=== PATIENT | male | born 1965 | race African-American/Black ===

== ENCOUNTER 2019-08-12 16:03 | Inpatient (IN) | payer MEDICAID ==
[~2019-08-12] VITALS: Ht 182.9 cm; Wt 138.8 kg
[2019-08-12] MEDS ORDERED: ONDANSETRON 4MG ODT PO STA (18:13)
[2019-08-12 18:14] LABS: BASOPHILS % 0.3 % (0.0-2.0); EOSINOPHILS % 0.4 % (0.0-5.0); HEMATOCRIT. 43.3 % (42.0-52.0); HEMOGLOBIN. 13.8 g/dL (14.0-18.0); LYMPHOCYTES % 23.6 % (20.0-50.0); MEAN CORPUSCULAR VOLUME 75.2 fL (80.0-94.0); MEAN PLATELET VOLUME 8.6 fl (7.4-10.4); MONOCYTES % 10.7 % (2.0-8.0); PLATELET 161 x1000/uL (130-400); RED BLOOD CELL COUNT 5.76 mill/uL (4.7-6.1)
[2019-08-12 18:15] LABS: CHLORIDE 106 mEq/L (98-107)
[2019-08-12] MEDS ORDERED: NITROGLYCERIN 0.4MG TABLET SL SL PRN (18:15)
[2019-08-12] MEDS ORDERED: CLONIDINE 0.2MG TABLET PO ONE (18:15)
[2019-08-12] MEDS ORDERED: HYDRALAZINE 20MG/ML VIAL IV ONE (18:15)
[2019-08-12] MEDS ORDERED: ASPIRIN 81MG TABLET PO ONE (18:15)
[2019-08-12 20:51] LABS: CLARITY URINE CLEAR (CLEAR); COLOR URINE YELLOW (YELLOW); KETONES URINE NEGATIVE (NEGATIVE); LEUKOCYTE ESTERASE URINE NEGATIVE (NEGATIVE); NITRITE URINE NEGATIVE (NEGATIVE); OCCULT BLOOD URINE TRACE (NEGATIVE); PH URINE 5.5 (4.5-8.0); PROTEIN URINE 1+ (NEGATIVE); SPECIFIC GRAVITY URINE 1.021 (1.005-1.030)
[2019-08-13] MEDS ORDERED: KETOROLAC 30MG/ML VIAL IV PRN (08:30)
[2019-08-13] MEDS ORDERED: ONDANSETRON HCL 4MG/2ML INJ IV PRN (08:30)
[2019-08-13 10:29] LABS: LDL CHOLESTEROL 91 mg/dL (5-100)
[2019-08-13 10:30] LABS: HDL CHOLESTEROL 52 mg/dL (40-59)
[2019-08-13] MEDS: AMLODIPINE 5MG TABLET PO SCH ×2 (11:16→22:01)
[2019-08-13] MEDS: ASPIRIN 81MG TABLET PO SCH (11:17)
[2019-08-13] MEDS ORDERED: LIDOCAINE HCL 1% 20ML VIAL (Pyxis) INJ ONE (14:05)
[2019-08-13 16:19] LABS: HEPATITIS B SURFACE ANTIGEN NEGATIVE
[2019-08-13] MEDS: LOSARTAN POTASSIUM 100 MG TABLET PO SCH (16:27)
[2019-08-13 16:49] LABS: HEPATITIS A AB IGM NEGATIVE (NEGATIVE)
[2019-08-13] MEDS ORDERED: CLONIDINE 0.1MG TABLET PO PRN (17:30)
[2019-08-13 17:39] LABS: *AMPHETAMINES SCREEN URINE PRESUMTIVE POSITIVE (NEGATIVE); *BARBITURATES SCREEN URINE NEGATIVE (NEGATIVE); *BENZODIAZEPINES SCREEN URINE NEGATIVE (NEGATIVE); *COCAINE SCREEN URINE NEGATIVE (NEGATIVE); OPIATES URINE SCREEN NEGATIVE (NEGATIVE)
[2019-08-13 17:40] LABS: CANNABINOID URINE SCREEN NEGATIVE (NEGATIVE); PHENCYCLIDINE URINE SCREEN NEGATIVE (NEGATIVE)
[2019-08-13 18:30] VITALS: BP 146/69
[2019-08-13 20:00] VITALS: BP 129/85
[2019-08-13] MEDS: ACETAMINOPHEN 325MG TABLET PO PRN (22:12)
[2019-08-14] VITALS: BP 102/61
[2019-08-14] MEDS ORDERED: B50 GT (00:13)
[2019-08-14] MEDS ORDERED: ABILIFY PO (00:13)
[2019-08-14 04:00] VITALS: BP 140/89
[2019-08-14 08:00] VITALS: BP 138/84
[2019-08-14 08:00] LABS: BASOPHILS % 0.3 % (0.0-2.0); EOSINOPHILS % 2.3 % (0.0-5.0); HEMATOCRIT. 46.4 % (42.0-52.0); MEAN CORPUSCULAR HEMOGLOBIN 24.2 pg (28.0-32.0); MEAN PLATELET VOLUME 8.5 fl (7.4-10.4); MONOCYTES % 10.6 % (2.0-8.0); NEUTROPHILS % 49.8 % (40.0-76.0); PLATELET 165 x1000/uL (130-400); RED BLOOD CELL COUNT 6.18 mill/uL (4.7-6.1); RED CELL DISTRIBUTION WIDTH 15.4 % (11.6-14.6)
[2019-08-14 08:04] LABS: CHLORIDE 109 mEq/L (98-107)
[2019-08-14] MEDS: ASPIRIN 81MG TABLET PO SCH (09:08)
[2019-08-14] MEDS: LOSARTAN POTASSIUM 100 MG TABLET PO SCH (09:08)
[2019-08-14] MEDS: AMLODIPINE 5MG TABLET PO SCH (09:09)
[2019-08-14] MEDS: ACETAMINOPHEN 325MG TABLET PO PRN (10:00)
[2019-08-14 12:00] VITALS: BP 135/86
[2019-08-14] MEDS ORDERED: LOSA100T3 PO (14:39)
[2019-08-14] MEDS ORDERED: AMLO5TAB88 PO (14:39)
[2019-08-14 14:51] VITALS: BP 135/86
[2019-08-15 15:15] LABS: METHADONE URINE SCREEN NEGATIVE (NEGATIVE)
== END 2019-08-14 13:45 | disposition home or self-care (01) | DRG 199 ==
LOC: ER 16:03 → EDBEDREQ 18:20 → 5WST 08-13 01:20 → EDBEDREQTM 08-13 01:23 → EDBEDREQ 08-13 01:23 → EDBEDREQDT 08-13 01:23 → ENRESERV 08-13 17:35
PROVIDERS: ADMIT Internal Medicine; ATTEND Internal Medicine
DX: I16.0 Hypertensive urgency (principal); I11.9 Hypertensive heart disease without heart failure; E87.6 Hypokalemia; F15.188 Other stimulant abuse with other stimulant-induced disorder; R74.0 Nonspecific elevation of levels of transaminase and lactic acid dehydrogenase [LDH]; R74.8 Abnormal levels of other serum enzymes
CPT/HCPCS: 36415; 71045; 80048; 80053; 80061; 80305; 81003; 83880; 84443; 84484; 85025; 86705; 86709; 86803; 87340; 93005; 93306; 99291; J0360; J1885; J3490; Q0162

== ENCOUNTER 2019-10-20 23:22 | Emergency (ER) | payer MEDICAID ==
[~2019-10-20] VITALS: Ht 175.3 cm; Wt 127.0 kg
[~2019-10-20 23:22] MED LIST: ABILIFY PO; AMLO5TAB88 PO; B50 GT; LOSA100T3 PO
[2019-10-20 23:27] VITALS: BP 177/110
[2019-10-20] MEDS ORDERED: KETOROLAC 30MG/ML VIAL IV STA (23:27)
[2019-10-20] MEDS ORDERED: SODIUM CHLORIDE 0.9% 1,000 ML IV ONE (23:27)
[2019-10-20] MEDS ORDERED: ASPIRIN 81MG TABLET PO ONE (23:30)
[2019-10-21 00:31] LABS: BASOPHILS % 0.4 % (0.0-2.0); HEMOGLOBIN. 14.8 g/dL (14.0-18.0); LYMPHOCYTES % 14.9 % (20.0-50.0); MEAN CORPUSCULAR VOLUME 74.9 fL (80.0-94.0); MEAN PLATELET VOLUME 8.2 fl (7.4-10.4); MONOCYTES % 9.5 % (2.0-8.0); NEUTROPHILS % 75.2 % (40.0-76.0); PLATELET 214 x1000/uL (130-400); RED BLOOD CELL COUNT 6.14 mill/uL (4.7-6.1); RED CELL DISTRIBUTION WIDTH 15.1 % (11.6-14.6)
[2019-10-21 00:59] LABS: CHLORIDE 107 mEq/L (98-107)
[2019-10-21 03:12] LABS: CLARITY URINE CLEAR (CLEAR); COLOR URINE DARK YELLOW (YELLOW); KETONES URINE TRACE (NEGATIVE); LEUKOCYTE ESTERASE URINE TRACE (NEGATIVE); NITRITE URINE NEGATIVE (NEGATIVE); OCCULT BLOOD URINE TRACE (NEGATIVE); PROTEIN URINE 3+ (NEGATIVE); SPECIFIC GRAVITY URINE 1.037 (1.005-1.030)
[2019-10-21 03:43] LABS: METHADONE URINE SCREEN NEGATIVE (NEGATIVE); OPIATES URINE SCREEN NEGATIVE (NEGATIVE)
[2019-10-21 03:44] LABS: *AMPHETAMINES SCREEN URINE PRESUMTIVE POSITIVE (NEGATIVE); *BARBITURATES SCREEN URINE NEGATIVE (NEGATIVE); *BENZODIAZEPINES SCREEN URINE NEGATIVE (NEGATIVE); *COCAINE SCREEN URINE PRESUMTIVE POSITIVE (NEGATIVE); CANNABINOID URINE SCREEN NEGATIVE (NEGATIVE); PHENCYCLIDINE URINE SCREEN NEGATIVE (NEGATIVE)
== END 2019-10-21 04:39 | disposition home or self-care (01) ==
LOC: ER 23:22
DX: T43.625A Adverse effect of amphetamines, initial encounter (principal); R07.89 Other chest pain; Y92.89 Other specified places as the place of occurrence of the external cause; Z79.899 Other long term (current) drug therapy
CPT/HCPCS: 36415; 71045; 80053; 80305; 81003; 83880; 84484; 85025; 93005; 99285; J1885; J7030; Z7610

== ENCOUNTER 2020-11-17 09:36 | Emergency (ER) | payer MEDICAID, OTHER ==
[~2020-11-17] VITALS: Ht 188 cm; Wt 97.0 kg
[2020-11-17] MEDS ORDERED: MAGNESIUM/ALUMINUM HYDROXIDE/SIMETHICONE 30ML UDC PO STA (10:56)
[2020-11-17] MEDS ORDERED: IBUPROFEN 600MG TABLET PO ONE (11:00)
[2020-11-17] MEDS ORDERED: CEFTRIAXONE SODIUM 1 G/VIAL IM ONE (11:00)
[2020-11-17] MEDS ORDERED: LIDOCAINE HCL/EPINEPHRINE 1%-EPI 1:100,000 10 ML VIAL IJ ONE (11:00)
[2020-11-17] MEDS ORDERED: TETANUS, DIPHTHERIA, PERTUSSIS VAC/PF 0.5ML (>7YR OLD) IM ONE (11:00)
[2020-11-17] MEDS ORDERED: LIDOCAINE HCL 1% 20ML VIAL (Pyxis) INJ INFIL ONE (11:00)
[2020-11-17 11:13] LABS: HEMATOCRIT. 45.2 % (42.0-52.0); HEMOGLOBIN. 14.8 g/dL (14.0-18.0); MEAN CORPUSCULAR HEMOGLOBIN 24.1 pg (28.0-32.0); MEAN CORPUSCULAR VOLUME 73.9 fL (80.0-94.0); MEAN PLATELET VOLUME 7.3 fl (7.4-10.4); PLATELET 179 x1000/uL (130-400); RED BLOOD CELL COUNT 6.12 mill/uL (4.7-6.1); RED CELL DISTRIBUTION WIDTH 14.3 % (11.6-14.6)
[2020-11-17 11:21] LABS: CHLORIDE 105 mEq/L (98-107)
[2020-11-17] MEDS ORDERED: LIDOCAINE HCL/EPINEPHRINE 1%-EPI 1:100,000 20 ML VIAL INFIL SCH (12:30)
[2020-11-17 12:47] LABS: PLATELET ESTIMATE NORMAL
[2020-11-17 13:05] VITALS: BP 158/64
[2020-11-17] MEDS ORDERED: SULF1TAB48 MT (13:28)
[2020-11-17] MEDS ORDERED: CEPH500C2 MT (13:28)
[2020-11-17] MEDS ORDERED: IBUP-2028 MT (13:28)
== END 2020-11-17 13:46 | disposition home or self-care (01) ==
LOC: ER 09:36
DX: L02.415 Cutaneous abscess of right lower limb (principal); G40.909 Epilepsy, unspecified, not intractable, without status epilepticus
CPT/HCPCS: 36415; 73560; 80053; 83690; 85025; 90715; 93005; 96372; 99285; J0696; J3490

== ENCOUNTER 2021-01-19 01:04 | Emergency (ER) | payer MEDICAID, OTHER ==
[~2021-01-19] VITALS: Ht 185.4 cm; Wt 124.0 kg
[~2021-01-19 01:04] MED LIST changes: +CEPH500C2 MT; +IBUP-2028 MT; +SULF1TAB48 MT
[2021-01-19 01:41] VITALS: BP 154/84
== END 2021-01-19 04:42 | disposition left against medical advice (07) ==
LOC: ER 01:04
DX: Z53.21 Procedure and treatment not carried out due to patient leaving prior to being seen by health care provider (principal)

== ENCOUNTER 2021-01-19 06:21 | Emergency (ER) | payer OTHER ==
[~2021-01-19] VITALS: Ht 182.9 cm; Wt 91.0 kg
[2021-01-19 06:49] VITALS: BP 143/80
== END 2021-01-19 07:07 | disposition left against medical advice (07) ==
LOC: ER 06:21
DX: Z53.21 Procedure and treatment not carried out due to patient leaving prior to being seen by health care provider (principal)
CPT/HCPCS: 99281

== ENCOUNTER 2021-08-03 14:21 | Emergency (ER) | payer OTHER ==
[~2021-08-03] VITALS: Ht 185.4 cm; Wt 113.0 kg
[2021-08-03 14:27] VITALS: BP 150/93
[2021-08-03] MEDS ORDERED: BACITRACIN ZINC OINT UDPKT TOP ONE (14:45)
[2021-08-03] MEDS ORDERED: TETANUS, DIPHTHERIA, PERTUSSIS VAC/PF 0.5ML (>10YR OLD) IM ONE (14:45)
[2021-08-03] MEDS ORDERED: LIDOCAINE HCL/PF 1% 10 MG/ML 5ML VIAL INFIL ONE (14:45)
[2021-08-03] MEDS ORDERED: LIDOCAINE HCL 1% 10 MG/ML 10ML VIAL INJ ONE (15:15)
[2021-08-03] MEDS ORDERED: SULF1TAB48 MT (16:08)
[2021-08-03] MEDS ORDERED: CEPH500T MT (16:08)
== END 2021-08-03 16:21 | disposition home or self-care (01) ==
LOC: ER 14:21
DX: L02.01 Cutaneous abscess of face (principal); G40.909 Epilepsy, unspecified, not intractable, without status epilepticus
CPT/HCPCS: 10060; 90471; 90715; 99283; J3490

== ENCOUNTER 2022-01-05 19:59 | Emergency (ER) | payer MEDICAID, OTHER ==
[~2022-01-05 19:59] MED LIST changes: +CEPH500T MT
== END 2022-01-05 21:27 | disposition left against medical advice (07) ==
LOC: ER 19:59
DX: Z53.21 Procedure and treatment not carried out due to patient leaving prior to being seen by health care provider (principal)

== ENCOUNTER 2022-01-07 11:07 | Emergency (ER) | payer OTHER ==
[~2022-01-07] VITALS: Ht 172.7 cm; Wt 75.0 kg
[2022-01-07 11:11] VITALS: BP 185/86
[2022-01-07] MEDS ORDERED: SULF1TAB48 MT ×3 (11:57→12:06)
[2022-01-07] MEDS ORDERED: IBUP-2029 MT (12:00)
== END 2022-01-07 12:14 | disposition left against medical advice (07) ==
LOC: ER 11:25
DX: L02.414 Cutaneous abscess of left upper limb (principal); L03.114 Cellulitis of left upper limb; G40.909 Epilepsy, unspecified, not intractable, without status epilepticus
CPT/HCPCS: 99281

== ENCOUNTER 2022-03-12 10:28 | Emergency (ER) | payer OTHER ==
[~2022-03-12] VITALS: Ht 185.4 cm; Wt 123.0 kg
[~2022-03-12 10:28] MED LIST changes: +IBUP-2029 MT
[2022-03-12 10:58] VITALS: BP 163/90
== END 2022-03-12 15:47 | disposition left against medical advice (07) ==
LOC: ER 10:28
DX: Z53.21 Procedure and treatment not carried out due to patient leaving prior to being seen by health care provider (principal)

== ENCOUNTER 2022-03-30 12:43 | Emergency (ER) | payer OTHER ==
[~2022-03-30] VITALS: Ht 185.4 cm; Wt 123.0 kg
[2022-03-30 13:13] VITALS: BP 149/102
[2022-03-30] MEDS ORDERED: ACETAMINOPHEN 325MG TABLET PO ONE (17:00)
[2022-03-30] MEDS ORDERED: LIDOCAINE HCL/EPINEPHRINE 1%-EPI 1:100,000 20 ML VIAL INFIL ONE (17:00)
[2022-03-30] MEDS ORDERED: LIDOCAINE HCL/PF 1% 10 MG/ML 5ML VIAL INFIL ONE ×2 (17:30)
[2022-03-30] MEDS ORDERED: CEPH500C2 MT (18:06)
[2022-03-30] MEDS ORDERED: SULF1TAB48 MT (18:06)
[2022-03-30] MEDS ORDERED: IBUP-2028 MT (18:06)
[2022-03-30] MEDS ORDERED: SULFAMETHOXAZOLE/TRIMETHOPRIM 800/160MG TABLET PO ONE (18:15)
[2022-03-30] MEDS ORDERED: CEPHALEXIN 250MG CAPSULE PO ONE (18:15)
== END 2022-03-30 19:07 | disposition home or self-care (01) ==
LOC: ER 12:43
DX: L02.11 Cutaneous abscess of neck (principal); I10 Essential (primary) hypertension; Z79.899 Other long term (current) drug therapy; Z86.59 Personal history of other mental and behavioral disorders; Z98.890 Other specified postprocedural states
CPT/HCPCS: 10060; 99283; J3490; Z7610